=== PATIENT | female | born 1945 | race Caucasian/White ===

== ENCOUNTER 2020-03-17 09:31 | Outpatient (CLI) | payer MEDICARE, SELFPAY ==
--- NOTE | ~2020-03-17 | MM_ITS ---
EXAMINATION: MM screening [facility] HISTORY: Screening mammogram TECHNIQUE: Craniocaudal and mediolateral oblique 3-D tomosynthesis images were obtained and synthetic 2-D images were generated. CAD analysis was submitted and interpreted. COMPARISON: 02/28/2019, 02/25/2018, 02/03/2017 bilateral digital screening mammogram examinations BREAST PARENCHYMAL COMPOSITION: There are scattered areas of fibroglandular density. FINDINGS: There is no evidence of suspicious mass, calcification, or architectural distortion to sugg est malignancy in either breast. There has been no suspicious interval change. IMPRESSION: 1. No mammographic evidence of malignancy. 2. Recommend routine screening mammography in one year. BI-RADS Category 1: Negative Reviewed, dictated and finalized at location A. R MACHINE OPERATOR
== END 2020-03-17 09:32 | disposition home or self-care (01) ==
LOC: ANHIMG 09:34
PROVIDERS: Family Provider Family Medicine; PCP Physician Assistant; Visit Provider Physician Assistant
DX: Z12.31 Encounter for screening mammogram for malignant neoplasm of breast (principal)
CPT/HCPCS: 77063; 77067

== ENCOUNTER 2020-07-04 08:56 | Outpatient (CLI) | payer MEDICARE, SELFPAY ==
--- NOTE | ~2020-07-04 | DEXA_ITS ---
Bone Density Report Name: Zayra Douglas Age: 74 Sex: Female Ethnicity: White Date of : 1945 Indication: postmenopausal; height loss; Referring Provider: Eva Tyler Study: Bone densitometry was performed. Exam Date: July 04, 2020 Accession number: [id number] There is hypertrophic degenerative change of the lumbar spine, which results in higher than expected spine bone mineral density measurements. These spine BMD and T score and Z score measurements are not reflective of the patient's true general bone mineral density. Bone Density: Region BMD T-score Z-score Classification AP Spine (L1, L2) 0.978 0.0 2.2 Normal Femoral Neck (Right) 0.677 -1.5 0.5 Osteopenia Total Hip (Right) 0.801 -1.2 0.5 Osteopenia World Health Organization criteria for BMD impression classify patients as: Normal (T-score at or above -1.0), Osteopenia (T-score between -1.0 and -2.5), or Osteoporosis (T-score at or below -2.5). 10-year Fracture Risk(1): Major Osteoporotic Fracture 11% Hip Fracture 3.1% Reported Risk Factors: [place] (), Neck BMD=0.677, BMI=30.2, smoking (1) FRAX(R) Version 3.08. Fracture probability calculated for an untreated patient. Fracture probability may be lower if the patient has received treatment. Clinical Information Provided by Patient: Smokes Has used the following medications: Vitamin D Patient maximum height was 63 Menopause Age: 56 Drinks caffeinated beverages Onset of menses at age 13 Number of children 1 Impression: The patient has low bone mass, based on the Right Femoral Neck T-score. The patient has an estimated ten-year risk of hip fracture of 3.1% and an estimated ten-year risk of major fracture of 11%, based on the WHO FRAX algorithm. The patient has risk factors, including: smoking. There is hypertrophic degenerative change of the lumbar spine, which results in higher than expected spine bone mineral density measurements. These spine BMD and T score and Z score measurements are not reflective of the patient's true general bone mineral density. Discussion: BONE DENSITY IS LOW AT ONE OR MORE SKELETAL SITES. THE PATIENT'S BMD AND CLINICAL RISK FACTORS CONTRIBUTE TO THIS PATIENT'S INCREASED RISK OF FRACTURE. This patient's lowest T-score is low at one or more skeletal sites. It meets the World Health Organization's (WHO) criteria for ?low bone mass? (T-score between -1.0 and -2.5). The patient's 10-year risk of hip fracture as calculated by FRAX exceeds the threshold where pharmacological therapy is recommended by the National Osteoporosis Foundation (NOF). However, all treatment decisions require clinical judgment and consideration of individual patient factors, including patient preferences, comorbidities, previous drug use, risk factors not captured in the FRAX model (e.g., frailty, falls, vitamin D defi
== END 2020-07-04 08:57 | disposition home or self-care (01) ==
LOC: ANHIMG 09:01
PROVIDERS: PCP Physician Assistant; Visit Provider Physician Assistant
DX: M81.0 Age-related osteoporosis without current pathological fracture (principal); Z78.0 Asymptomatic menopausal state; M85.851 Other specified disorders of bone density and structure, right thigh
CPT/HCPCS: 77080

== ENCOUNTER 2021-04-09 15:01 | Outpatient (CLI) | payer MEDICARE, SELFPAY ==
--- NOTE | ~2021-04-09 | MM_ITS ---
EXAMINATION: MM screening [facility] HISTORY: Screening mammogram TECHNIQUE: Craniocaudal and mediolateral oblique 3-D tomosynthesis images were obtained and synthetic 2-D images were generated. CAD analysis was submitted and interpreted. COMPARISON: 03/17/2020, 02/28/2019, 02/25/2018 BREAST PARENCHYMAL COMPOSITION: There are scattered areas of fibroglandular density. FINDINGS: There is no evidence of suspicious mass, calcification, or architectural distortion to sugg est malignancy in either breast. There has been no suspicious interval change. IMPRESSION: 1. No mammographic evidence of malignancy. 2. Recommend routine screening mammography in one year. BI-RADS Category 1: Negative Reviewed, dictated and finalized at location A. D BANK TECHNICIAN
== END 2021-04-09 15:02 | disposition home or self-care (01) ==
LOC: ANHIMG 15:03
PROVIDERS: PCP Physician Assistant; Visit Provider Physician Assistant
DX: Z12.31 Encounter for screening mammogram for malignant neoplasm of breast (principal)
CPT/HCPCS: 77063; 77067

== ENCOUNTER 2021-06-21 13:10 | Emergency (ER) | payer MEDICARE, SELFPAY ==
--- NOTE | ~2021-06-21 | XR_ITS ---
EXAMINATION: XR shoulder LT min 2V DATE: 06/21/2021 13:43 INDICATION: Left shoulder pain post fall TECHNIQUE: AP internally and externally rotated, AP oblique externally rotated and transscapular Y vi ews of the left shoulder were obtained. COMPARISON: None FINDINGS: Normal alignment. Comminuted fractures of the proximal left humerus including oblique fracture at the surgical neck with 1 cm anteromedial displacement and with nondisplaced fracture plane extending agata ng the anatomic neck consistent with a two-part fracture. No other fractures identified. Widening of the glenohumeral joint consistent with the presence of a likely post traumatic left joint effusion. 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 Visualized portions of the left lung are clear. Sof t tissues are unremarkable. IMPRESSION: Comminuted two-part fracture of the proximal left humerus. Reviewed, dictated and finalized at location A.
[2021-06-21 13:22] VITALS: BP 119/76; PULSE 86; RESP 18; TEMP 37.4; O2SAT 97
--- NOTE | 2021-06-21 13:28 | ED.UPPEXIN ---
HPI - Extremity Injury (Upper) General Chief Complaint: Extremity Injury, Upper Stated Complaint: left shoulder injury Time Seen by Provider: 06/21/21 13:28 Source: patient, RN notes reviewed and old records reviewed Mode of arrival: ambulatory Limitations: no limitations History of Present Illness HPI narrative: 75-year-old female presents to the [facility] with left shoulder pain after falling 4 feet From a ladder. Denies head, neck or back pain. Denies hitting head. No loss of consciousness. No blurry vision or change in vision. Full range of motion of the elbow and wrist with strong guest associate. Deformity noted the proximal humerus, left side. Significant bruising noted, no open wounds Related Data Home Medications Medication Instructions Recorded Confirmed irbesartan 150 mg DIRECTED 06/21/21 06/21/21 paroxetine HCl 40 mg PO DIRECTED 06/21/21 06/21/21 Allergies Allergy/AdvReac Type Severity Reaction Status Date / Time Sulfa (Sulfonamide Allergy Mild Verified 12/04/16 14:36 Antibiotics) BUPROPION HCL Allergy Unknown AGITATION Uncoded 12/04/16 14:36 Review of Systems Review of Systems: All systems reviewed & are unremarkable except as noted in HPI and below Constitutional: Constitutional: Reports no additional constitutional complaints, Denies chills and Denies fever(s) Eyes: Eyes: Reports no additional eye complaints ENT: Reports system reviewed and no additional complaints, except as documented Cardiovascular: Cardiovascular: Reports no additional cardiovascular complaints Respiratory: Respiratory: Reports no additional respiratory complaints Gastrointestinal: Gastrointestinal: Reports no additional gastrointestinal complaints Musculoskeletal: Musculoskeletal: Reports as per HPI, Denies back pain, Reports arthralgias (left shoulder), Reports joint swelling (left shoulder) and Reports limited range of motion (Left shoulder) Integumentary/Breasts: Skin/Breast: Reports system reviewed and no additional complaints, except as docu Neurologic: Reports system reviewed and no additional complaints, except as documented Psychiatric: Psychiatric: Reports no additional psychiatric complaints Allergic/Immunologic: Allergic/Immunologic: Reports no additional allergic/immunologic complaints PMFSH Past Medical History Medical History (Updated 06/21/21 @ 19:52 by Tanya Winkler APRN) Anxiety and depression Social History Social History (Updated 06/21/21 @ 19:52 by Tanya Winkler APRN) Gender identity (if verbalized by the patient): Female Comments At the time of my signature, I reviewed and agree with the nursing past medical, surgical, social, and family history. There is no relevant family history pertinent to the patient complaint. Exam Const: General: healthy appearing, no acute distress and alert Nutritional Appearance: well nourished Orientation/consciousness: patient oriented x3 Limitations: no limitations HENMT: Head: normal to inspection Ears: external ears normal Eyes: Pupils: Equal, round and reactive pupils present Neck: Neck: normal visual inspection, no lymphadenopathy and no meningeal signs Chest: Chest palpation & inspection: normal inspection of the chest Resp: Effort & Inspection: normal respiratory effort and no use of accessory muscles Auscultation: clear to auscultation bilaterally, no crackles, no rales, no rhonchi and no wheezes Cardio: Rate: regular rate Rhythm: regular rhythm GI: GI Palp: Yes Soft to palpation and No Tenderness to palpation present (GI) Back/Spine/Pelvis: Back: no CVA tenderness Cervical Spine: normal cervical lordosis, cervical ROM normal, No Cervical spine tenderness and No step off deformity Thoracic/Lumbar Spine: No thoracic spinal tenderness and No lumbar spinal tenderness Pelvis: no pain with anterior-posterior compression and no pain with lateral compression Skin: General skin exam: normal color Rashes: no rashes Wounds: no wounds
== END 2021-06-21 14:42 | disposition home or self-care (01) ==
PROVIDERS: Emergency Provider Nurse Practitioner; PCP Physician Assistant
DX: S42.292A Other displaced fracture of upper end of left humerus, initial encounter for closed fracture (principal); W11.XXXA Fall on and from ladder, initial encounter; F41.9 Anxiety disorder, unspecified; F32.A Depression, unspecified
CPT/HCPCS: 73030; 99214; A4565; G0463

== ENCOUNTER 2021-06-26 14:23 | Outpatient (CLI) | payer MEDICARE, SELFPAY ==
--- NOTE | 2021-06-26 15:05 | ECG_ITS ---
Measurements Intervals [place] Rate: 48 P: 40 MT: 144 QRS: -9 QRSD: 85 T: 2 QT: 406 QTc: 363 Interpretive Statements SINUS BRADYCARDIA VOLTAGE CRITERIA FOR LVH BORDERLINE T WAVE ABNORMALITY- INFERIOR LEADS BASELINE ARTIFACT- I, II, AVR, AVL, AVF, V1 ABNORMAL ECG Electronically Signed On 06-26-2021 15:17:51 CDT by Sam Peter D.O.
== END 2021-06-26 14:24 | disposition home or self-care (01) ==
LOC: ANHSURGERY 14:26
PROVIDERS: PCP Physician Assistant; Visit Provider Orthopaedic Surgery
DX: Z01.810 Encounter for preprocedural cardiovascular examination (principal); S42.202A Unspecified fracture of upper end of left humerus, initial encounter for closed fracture; I10 Essential (primary) hypertension; R00.1 Bradycardia, unspecified
CPT/HCPCS: 93005

== ENCOUNTER 2021-07-04 01:38 | Day surgery (SDC) | payer MEDICARE, SELFPAY ==
--- NOTE | 2021-06-26 14:52 | PC.NURSE ---
Report to the Outpatient Waiting Room, entrance under the green pavilion located off [facility], at time _0830 on date __07/04/21 . OR Time: __1030 . - You and your visitor will be asked a series of questions to screen for COVID 19 for your protection. - Only one visitor is allowed at this time. - The patient visitor is requested to leave or wait in car when not with patient. - A mask is required within the hospital. Patients may have clear liquids (water, carbonated beverages, clear teas, apple juice) until 3 hours prior to surgery with a maximum of 20 ounces. - No food from midnight until time of surgery - Infants may have breast milk until 4 hours before surgery, infant formula 6 hours prior to surgery. - Children will be allowed to drink immediately following surgery. If applicable, please bring a bottle or sippy cup to assist with drinking. Juice, water, soda, and popsicles are readily available. For infants on formula, please bring formula the day of surgery. Pacifiers are allowed. Take the following medications with a SIP of water the morning of surgery: ___PAROXETINE Medications to discontinue per physician _IBUPROFEN 7 DAYS PRE OP, ALL VITAMINS AND SUPPLEMENTS 3 DAYS PRE OP Date to take last dose IBUPROFEN 06/26/21____ ALL VITAMINS/SUPP 06/30/21 Please no make-up, nail sinhala, hairspray, perfume, deodorant, or body powder the day of surgery. No jewelry (including any body piercings) or valuables the day of surgery, leave them at home. Please take a shower or bath the night before, or the morning of, surgery with an antibacterial soap. Wear comfortable, loose fitting clothing. Children are encouraged to wear pajamas. - Jewelry must be removed prior to entering the operating room. Rings and piercings that are not removed may be cut off. - The hospital will not accept responsibility for valuables. - Please leave all valuables, including medications, at home the day of surgery. If you are going home after surgery, a licensed ross carrier driver must drive you home. - NO public transportation without another adult. - We recommend that an adult stay with you for 24 hours following discharge. - We also recommend that you do not drive, make important decision, drink alcoholic beverages, or take any drugs that were not prescribed by your health care provider for at least 24 hours after your discharge time. For Pediatric surgeries, we recommend two adults accompany the child home (only one inside the building at this time). Follow any additional instructions given to you from your surgeon. If you or anyone in your household have experienced Covid symptoms in the past week, please notify your surgeon or the nurse liaison at the phone number below for possible testing. VERBAL AND WRITTEN instructions given to __PATIENT and asked if any additional questions and then verbalized understanding. Patient advised to call surgeon office or pre surgery nurse liaison [phone] if any additional questions. Report to the Outpatient Waiting Room, entrance under the [place] pavilion located off [facility], at time on date . OR Time: . - You and your visitor will be asked a series of questions to screen for COVID 19 for your protection. - Only one visitor is allowed at this time. - The patient visitor is requested to leave or wait in car when not with patient. - A mask is required within the hospital. Patients may have clear liquids (water, carbonated beverages, clear teas, apple juice) until 3 hours prior to surgery with a maximum of 20 ounces. - No food from midnight until time of surgery - Infants may have breast milk until 4 hours before surgery, formula 6 hours prior to surgery. - Children will be allowed to drink immediately following surgery. If applicable, please bring a bottle or sippy cup to assist with drinking. Juice, water, s
[2021-06-26 15:03] VITALS: BP 151/74; PULSE 60; RESP 18; TEMP 36.7; O2SAT 97; BMI 30.2
[2021-07-04] VITALS (8 sets, daily range): BP systolic 125–165; BP diastolic 63–85; PULSE 60–93; RESP 16–20; TEMP 36.6; O2SAT 94–100
--- NOTE | ~2021-07-04 | XR_ITS ---
EXAMINATION: XR surgery orthopedic DATE: 07/04/2021 12:17 INDICATION: ORIF left humeral fracture. TECHNIQUE: 9 fluoroscopic images of the proximal left humerus were obtained during procedure performed by Dr. Jill rodriguez. Radiologist was not present for the imaging or procedure. The amount of fluoroscopy time us ed during this procedure was 1.9 minutes. COMPARISON: 06/26/2021 FINDINGS: Images demonstrate open reduction internal fixation of a mildly comminuted fractures at the surgical neck of the proximal left humerus. The fractures has been fixed with an antegrade intramedullary elsie with a distal interlocking screw at the diaphysis and a pair of interlocking screws at the humeral he ad. Alignment post fixation appears near-anatomic. IMPRESSION: 1. Near-anatomic alignment post open reduction internal fixation of a mildly comminuted fractures at the surgical neck of the proximal humerus. See procedure note for further detail. Reviewed, dictated and finalized at location B. IMPRESSION: 1. Near-anatomic alignment post open reduction internal fixation of a mildly co mminuted fractures at the surgical neck of the proximal humerus. See procedure note for further detail.
[2021-07-04] MEDS: ACETAMINOPHEN 500 MG TABLET 1000 MG PO (08:55)
[2021-07-04] MEDS: KETOROLAC 15 MG/ML VIAL (*BKC) IV PUSH (09:13)
[2021-07-04] MEDS: LACTATED RINGERS 1,000 ML 30 ML IV CONT ×2 (09:35→12:50)
--- NOTE | 2021-07-04 09:44 | WPDANESEPPF ---
Anes - Initial Pre Proc Eval Procedure: Operation Date: 07/04/21 10:30 Proposed Procedures p Open Reduction Internal Fixation Left Proximal Humerus Fracture - Homero Asif MD Date/Time: 07/04/21 09:44 Surgeon: Homero Asif MD Pre Op Diagnosis: left proximal humerus fx Patient Data Age: 75 Gender: F Height: 1.56 m Weight: 73.8 kg Last Vital Signs Temp 36.7 C 06/26/21 15:03 Pulse 60 06/26/21 15:03 Resp 18 06/26/21 15:03 BP 151/74 H 06/26/21 15:03 Pulse Ox 97 06/26/21 15:03 O2 Del Method Room Air 06/26/21 15:03 Allergies Allergy/AdvReac Type Severity Reaction Status Date / Time Sulfa (Sulfonamide Allergy Mild unknown Verified 07/04/21 09:33 Antibiotics) BUPROPION HCL Allergy Unknown AGITATION Uncoded 07/04/21 09:33 Home Medications Medication Instructions Recorded Confirmed Type irbesartan 150 mg tablet 150 mg PO DAILY 06/21/21 06/26/21 History paroxetine HCl 40 mg tablet 40 mg PO DAILY 06/21/21 06/26/21 History ascorbic acid (vitamin C) 500 mg 500 mg PO DAILY 06/26/21 06/26/21 History tablet cholecalciferol (vitamin D3) 25 25 mcg PO DAILY 06/26/21 06/26/21 History mcg (1,000 unit) capsule hydrocodone 5 mg-acetaminophen 325 1 tablet PO PRN PRN Pain 06/26/21 06/26/21 History mg tablet ibuprofen 600 mg tablet 600 mg PO QID PRN Pain 06/26/21 06/26/21 History Patient hx anesthesia problems: none Family hx anesthesia problems: none Results Review: All pre-operative results and documents have been reviewed as part of the pre-operative evaluation. [facility] Past Medical History Medical History Anxiety and depression Hypertension Obesity Smoker Surgical History Surgical History History of surgical removal of ganglion cyst History of total left hip replacement (~11/2012) Family History Family History (Updated 06/26/21 @ 13:24 by Jazzy Browning MA) Mother Hypertension Social History Social History (Updated 06/26/21 @ 13:24 by Jazzy Browning MA) Smoking packs per day: 0.5 Smoking cigarettes per day: 10.0 Years smoked: 50 Smoking pack-years: 25.00 Smoking status: Current every day smoker Tobacco type: cigarettes Alcohol intake: never Substance use: never Substance use type: does not use Living arrangements: alone Gender identity (if verbalized by the patient): Female Spiritual care concerns: No Anes - Eval Final PreProcedure Day of Procedure 07/04/21 09:44 Patient weight: obese Heart: regular rate and rhythm Lungs: clear to auscultation Neurological: alert and oriented Last oral intake: >/= 8 hours ASA classification: III Emergent: no Anesthesia type and monitoring: general ETT and standard monitoring Results Review: All pre-operative results and documents have been reviewed as part of the pre-operative evaluation. Informed Consent: The patient's anesthetic plan and its attendant risks and benefits were discussed with the patient/family/POA. Questions were solicited and answers provided to the satisfaction of the patient/family/POA.
--- NOTE | 2021-07-04 10:34 | WPDHPUPDATE1 ---
History and Physical Update Update Date/Time: 07/04/21 10:34 History and Physical has been reviewed, including an updated exam of the patient. There are NO changes in the patient's condition. Risks, benefits, and alternatives have been discussed and questions answered. Patient agrees to proceed with procedure.
[2021-07-04] MEDS: ceFAZolin 2 GM/D5W 50 ML 2 GM/50 ML BAG IVPB (10:39)
--- NOTE | 2021-07-04 14:41 | W.PM.PROC2 ---
Procedure Note - Detailed Date of Procedure 07/04/21 Pre-op Diagnosis left proximal humerus fx Post-op Diagnosis Same Procedure Performed ORIF left proximal humerus surgical neck fracture with IM nail. Surgeon Homero Asif MD Career Placement Specialist Parvin Multani PA-C Anesthesia General Indications Displaced surgical neck fracture with significant varus angulation at 90? and medial calcar comminution. High risk for nonunion. Findings Minimal for closed reduction. Significant medial calcar comminution. Split in the greater tuberosity nondisplaced. Short Tornier nail with excellent fit and fill. Near anatomic improvement in alignment. Description of Procedure Preoperative antibiotics were given. Patient was placed in the beach chair position after general anesthetic. The Knight head buyer tobacco was used to carefully position the patient. Careful positioning for biplanar fluoroscopy was confirmed. The shoulder was prepped and draped in usual sterile fashion using the articulated arm grace. An oblique incision over the anterolateral acromion was created. A longitudinal split through rough a of the deltoid was created at the angle of the acromion. The supraspinatus was identified. a small split was placed through the muscle just medial to the tendon. There was some very mild bursal fraying noted. The awl was placed at the articular margin. Biplanar fluoroscopy was used throughout the procedure to confirm appropriate placement of implants and bony reduction. The awl was used to assist in the reduction as well as manipulating the shoulder into near anatomic reduction. There was some comminution along the medial calcar as expected. After opening the canal with the awl the nail was placed across the fracture site and sunk to the appropriate level using the notch thelma on the paste mixing supervisor at the level of the bone margin. Multiple views were taken to assure that the nail was imbedded in the bone. The jig apparatus was used to line up the nail rotationally with the forearm at the appropriate angle according to the nail design. The lateral locking screw followed by a posterior tuberosity screw was placed. Screw lengths were carefully measured and confirmed to be out of the joint. Finally a distal locking screw was placed centrally in the static position. Fracture appeared quite stable. Fluoroscopy again was used to confirm appropriate seating of all the implants. The jig was removed. The wound was irrigated. The supraspinatus muscle split was repaired with a few [id number] 1. Vicryl sutures. The deltoid split was repaired similarly. Subcutaneous tissues closed with interrupted suture followed by running 4-0 Monocryl suture. Steri-Strips placed on the skin. Arthroscopic portals closed with interrupted 4-0 Monocryl and Steri-Strips. A Mepilex dressing was placed over the proximal lateral wounds. Sling was applied. The patient was extubated and brought to recovery room in stable condition. 20 mL of 0.5% Marcaine was injected into the wounds prior to closure. Implants Tornier short humeral nail. Estimated Blood Loss -50.0 Drains No Packing No Pathology None sent Complications No immediate complications Condition Stable Disposition Same day [facility] Billing Surgery - Charge Forward: Surgery Billing
== END 2021-07-04 15:05 | disposition home or self-care (01) ==
PROVIDERS: PCP Physician Assistant; Visit Provider Orthopaedic Surgery
PROC: (CPT 23615; principal; 2021-07-04 10:30)
DX: S42.222A 2-part displaced fracture of surgical neck of left humerus, initial encounter for closed fracture (principal); W11.XXXA Fall on and from ladder, initial encounter; I10 Essential (primary) hypertension; F41.8 Other specified anxiety disorders; E66.9 Obesity, unspecified; Z68.30 Body mass index [BMI] 30.0-30.9, adult; F17.210 Nicotine dependence, cigarettes, uncomplicated
CPT/HCPCS: 23615; 93005; A4565; A9270; C1713; J0690; J1100; J1170; J1885; J2370; J2405; J2704; J3010; J7120

== ENCOUNTER 2022-06-05 14:58 | Outpatient (CLI) | payer MEDICARE, SELFPAY ==
--- NOTE | ~2022-06-05 | MM_ITS ---
EXAMINATION: MM screening [facility] HISTORY: Screening mammogram TECHNIQUE: Craniocaudal and mediolateral oblique 3-D tomosynthesis images were obtained and synthetic 2-D images were generated. CAD analysis was submitted and interpreted. COMPARISON: 04/09/2021, , 02/28/2019 bilateral screening mammogram examinations BREAST PARENCHYMAL COMPOSITION: There are scattered areas of fibroglandular density. FINDINGS: There is no evidence of suspicious mass, calcification, or architectural distortion to sugg est malignancy in either breast. There has been no suspicious interval change. IMPRESSION: 1. No mammographic evidence of malignancy. 2. Recommend routine screening mammography in one year. BI-RADS Category 1: Negative Reviewed, dictated and finalized at location A.
== END 2022-06-05 14:59 | disposition home or self-care (01) ==
LOC: ANHIMG 15:01
PROVIDERS: PCP Physician Assistant; Visit Provider Physician Assistant
DX: Z12.31 Encounter for screening mammogram for malignant neoplasm of breast (principal)
CPT/HCPCS: 77063; 77067

== ENCOUNTER → 2022-12-08 11:00 | Outpatient (CLI) | payer MEDICARE, SELFPAY ==
--- NOTE | ~2022-12-08 | DEXA_ITS ---
Bone Density Report Name: AAYUSH SUTTON Age: 77 Sex: Female Ethnicity: White Date of : 1945 Indication: postmenopausal; screening for osteoporosis; height loss; prior fracture; Referring Provider: Eva Tyler Study: Bone densitometry was performed. Exam Date: December 08, 2022 Accession number: [id number] Bone Density: Region BMD T-score Z-score Classification AP Spine (L1, L2, L3) 1.002 -0.1 2.3 Normal Femoral Neck (Right) 0.708 -1.3 0.9 Osteopenia Total Hip (Right) 0.748 -1.6 0.2 Osteopenia World Health Organization criteria for BMD impression classify patients as: Normal (T-score at or above -1.0), Osteopenia (T-score between -1.0 and -2.5), or Osteoporosis (T-score at or below -2.5). 10-year Fracture Risk(1): Major Osteoporotic Fracture 17% Hip Fracture 4.8% Reported Risk Factors: [place] (), Neck BMD=0.708, BMI=26.7, previous fracture, smoking (1) FRAX(R) Version 3.08. Fracture probability calculated for an untreated patient. Fracture probability may be lower if the patient has received treatment. Previous Exams: Region Exam Age BMD T-score BMD Change BMD Change Date g/cm2 vs Baseline vs Previous AP Spine(L1, L2, L3) 12/08/2022 77 1.002 -0.1 0.026* -0.034* 08/21/2012 66 1.036 0.2 0.060* 0.040* 08/16/2010 64 0.996 -0.2 0.020 0.017 07/26/2007 61 0.979 -0.4 0.004 0.004 07/05/2004 58 0.976 -0.4 Total Hip(Right) 12/08/2022 77 0.748 -1.6 -0.238* -0.136* 09/19/2014 68 0.884 -0.5 -0.103* -0.046* 08/21/2012 66 0.930 -0.1 -0.057* 0.001 08/16/2010 64 0.928 -0.1 -0.058* 0.053* 07/26/2007 61 0.875 -0.6 -0.112* -0.112* 07/05/2004 58 0.987 0.4 *Denotes significance at 95% confidence level, LSC for AP Spine = 0.022 g/cm2, LSC for Total Hip = 0.027 g/cm2 Clinical Information Provided by Patient: Has had a low trauma fracture Smokes Has used the following medications: Vitamin D Patient maximum height was 63 Menopause Age: 56 Drinks caffeinated beverages Onset of menses at age 13 Number of children 1 Impression: The patient has low bone mass, based on the Right Total Hip T-score. The patient has an estimated ten-year risk of hip fracture of 4.8% and an estimated ten-year risk of major fracture of 17%, based on the WHO FRAX algorithm. The patient has risk factors, including: smoking, previou
== END ==
PROVIDERS: PCP Physician Assistant; Visit Provider Physician Assistant
DX: Z78.0 Asymptomatic menopausal state (principal); M85.851 Other specified disorders of bone density and structure, right thigh
CPT/HCPCS: 77080

== ENCOUNTER 2023-08-17 15:19 | Outpatient (CLI) | payer MEDICARE, SELFPAY ==
--- NOTE | ~2023-08-17 | MM_ITS ---
EXAMINATION: MM screening [facility] HISTORY: Screening TECHNIQUE: Craniocaudal and mediolateral oblique 3-D tomosynthesis images were obtained and synthetic 2-D images were generated. CAD analysis was submitted and interpreted. COMPARISON: Comparison to multiple prior studies sequentially, with oldest reviewed study dated 01/10. BREAST PARENCHYMAL COMPOSITION: Not dense: There are scattered areas of fibroglandular density. FINDINGS: There is no evidence of suspicious mass, calcification, or architectural distortion to sugg est malignancy in either breast. There has been no suspicious interval change. IMPRESSION: 1. No mammographic evidence of malignancy. 2. Recommend routine screening mammography in one year. BI-RADS Category 1: Negative Reviewed, dictated and finalized at location B.
== END 2023-08-17 15:20 | disposition home or self-care (01) ==
LOC: ANHIMG 15:21
PROVIDERS: PCP Family Medicine; Visit Provider Physician Assistant
DX: Z12.31 Encounter for screening mammogram for malignant neoplasm of breast (principal)
CPT/HCPCS: 77063; 77067

== ENCOUNTER 2023-09-17 09:10 | Outpatient (CLI) | payer MEDICARE, SELFPAY ==
--- NOTE | ~2023-09-17 | XR_ITS ---
EXAMINATION: XR chest 2V 09/17/2023 09:23 INDICATION: Shortness of breath and cough PROCEDURE: 2 view chest COMPARISON: Comparison to multiple prior studies sequentially, with oldest reviewed study dated 05/2004. FINDINGS: The lungs are clear. The lungs are hyperinflated which is consistent with, but not diagnost ic of chronic obstructive pulmonary disease. The cardiomediastinal silhouette is within normal limits . There are no pleural effusions. There is no pneumothorax suspected. There is an intramedullary r od in the left humerus proximally. There is dextroscoliosis of the thoracic spine. IMPRESSION: 1: NO ACUTE CARDIOPULMONARY DISEASE. Reviewed, dictated and finalized at location B.
== END 2023-09-17 09:11 ==
LOC: MICIMG 09:11
PROVIDERS: PCP Family Medicine; Visit Provider Physician Assistant
DX: R06.02 Shortness of breath (principal); R05.9 Cough, unspecified
CPT/HCPCS: 71046

== ENCOUNTER 2024-11-08 11:05 | Outpatient (CLI) | payer MEDICARE, SELFPAY ==
--- NOTE | ~2024-11-08 | MM_ITS ---
EXAMINATION: MM screening [facility] HISTORY: Screening TECHNIQUE: Craniocaudal and mediolateral oblique 3-D tomosynthesis images were obtained and synthetic 2-D images were generated. CAD analysis was submitted and interpreted. COMPARISON: Comparison to multiple prior studies sequentially, with oldest reviewed study dated 02/25/2018. BREAST PARENCHYMAL COMPOSITION: Not dense: There are scattered areas of fibroglandular density. FINDINGS: There is no evidence of suspicious mass, calcification, or architectural distortion to suggest malignancy in either breast. There has been no suspicious interval change. IMPRESSION: 1. No mammographic evidence of malignancy. 2. Recommend routine screening mammography in one year. BI-RADS Category 1: Negative Reviewed, dictated and finalized at location B.
--- OUTSIDE RECORDS SUMMARY | 2024-11-08 11:41 | XMS_ITS | Clinical Summary ---
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 Role Phone Unavailable Primary Care Provider Unavailabl e Social History Tobacco Use Types Packs/Day Years Used Date Smoking Tobacco: Never Assessed Comments Unknown Sex and Gender Information Value Date Recorded Sex Assigned at Not on file Legal Sex Female 8:07 AM CDT Gender Identity Not on file Sexual Orientation Not on file Plan of Treatment Health Maintenance Due Date Last Done Comments Hepatitis C 1963 DTaP, Tdap and Td Vaccines ( 1 - Tdap) 1965 Pneumococcal Vaccine: 50+ Ye ars (1 of 1 - PCV) 1996 Zoster Vaccines (1 of 2) 1996 Dexa Scan (General) 11/11/2011 RSV Immunization or 60+ Years (1 - 1-dose 75+ series) 2021 COVID-19 Vaccine (2023-2 5 season) 2024 Meningococcal B Vaccine Aged Out No l onger eligible based on patient's age to complete this topic Meningococcal Vaccine Aged Out No humberto breann eligible based on patient's age to complete this topic RSV Immunizations Under 20 Months Aged Out No longer eligible based on patient's age to complete this topic
== END 2024-11-08 11:06 | disposition home or self-care (01) ==
LOC: ANHFOHIMG 11:05
PROVIDERS: PCP Family Medicine
DX: Z12.31 Encounter for screening mammogram for malignant neoplasm of breast (principal)
CPT/HCPCS: 77063; 77067